=== PATIENT | male | born 1985 | race Caucasian/White ===

== ENCOUNTER 2025-03-04 17:01 | Emergency (ER) | payer OTHER ==
[2025-03-04] MEDS: ACETAMINOPHEN TAB 500 MG TAB PO STA (18:11)
[2025-03-04] MEDS: IBUPROFEN 800 MG TAB PO STA (18:12)
--- NOTE | 2025-03-04 18:13 | ED ---
General Adult HPI - General Source: patient, RN notes reviewed Mode of arrival: ambulatory Limitations: no limitations - History of Present Illness Onset/Timin -: days(s) Location: lower extremity Associated Symptoms: denies other symptoms <Denver Haskins - Last Filed: 03/04/25 18:51> <Sylvia Chavez - Last Filed: 03/04/25 20:49> - General Chief complaint: Skin/Abscess/Foreign Body Stated complaint: l leg irritation/swell Time Seen by Provider: 03/04/25 17:16 - History of Present Illness Initial comments: This is a 39-year-old male with no significant medical history presenting for bilateral lower extremity edema x 3 days. Patient denies known cause for swelling, noting some discoloration in his left leg and pain with weightbearing and ambulation. Patient denies recent trauma or open wound, history of leg swelling, recent long distance travel, recent surgery. Denies fever, chills, chest pain, dyspnea, abdominal pain, N/V/D. (Denver Haskins) - Related Data Previous Rx's Medication Instructions Recorded Cephalexin [Keflex] 500 mg PO Q6HR 1 Days #40 cap 03/04/25 Furosemide [Lasix] 40 mg PO DAILY 3 Days #3 tablet 03/04/25 Allergies Allergy/AdvReac Type Severity Reaction Status Date / Time No Known Allergies Allergy Verified 03/04/25 17:19 Review of Systems ROS Other: All systems not noted in ROS Statement are negative. <Denver Haskins - Last Filed: 03/04/25 18:51> ROS Other: All systems not noted in ROS Statement are negative. <Sylvia Chavez - Last Filed: 03/04/25 20:49> ROS Statement: Those systems with pertinent positive or pertinent negative responses have been documented in the HPI. Past Medical History Past Medical History: No Reported History Past Surgical History: No Surgical Hx Reported Smoking Status: Current every day smoker <Denver Haskins - Last Filed: 03/04/25 18:51> General Exam Limitations: no limitations General appearance: alert, in no apparent distress Head exam: Present: atraumatic, normocephalic, normal inspection Eye exam: Present: normal appearance, PERRL, EOMI. Absent: scleral icterus, conjunctival injection, periorbital swelling ENT exam: Present: normal exam, mucous membranes moist Neck exam: Present: normal inspection. Absent: tenderness, meningismus, lymphadenopathy Respiratory exam: Present: normal lung sounds bilaterally. Absent: respiratory distress, wheezes, rales, rhonchi, stridor Cardiovascular Exam: Present: regular rate, normal rhythm, normal heart sounds. Absent: systolic murmur, diastolic murmur, rubs, gallop, clicks GI/Abdominal exam: Present: soft, normal bowel sounds. Absent: distended, tenderness, guarding, rebound, rigid Extremities exam: Present: full ROM, normal capillary refill, pedal edema (Positive BLE pitting edema extending to knees with left ankle patchy stasis dermatitis), calf tenderness (Minor left calf pain with palpation), other (Distal neurovascular motor function intact bilaterally. Posterior tibialis pulses +2). Absent: joint swelling Back exam: Present: normal inspection Neurological exam: Present: alert, oriented X3, CN II-XII intact Psychiatric exam: Present: normal affect, normal mood Skin exam: Present: warm, dry, intact, normal color. Absent: rash <Denver Haskins - Last Filed: 03/04/25 18:51> Course Vital Signs 03/04/25 03/04/25 17:17 20:25 Temperature 99.8 F H 98.5 F Pulse Rate 105 H 92 Respiratory 20 18 Rate Blood Pressure 157/84 156/99 O2 Sat by Pulse 95 98 Oximetry Medical Decision Making - Lab Data Result diagrams: 03/04/25 18:15 <Denver Haskins - Last Filed: 03/04/25 18:51> - Lab Data Result diagrams: 03/04/25 18:15 03/04/25 18:15 - Radiology Data Radiology results: report reviewed, image reviewed <Sylvia Chavez - Last Filed: 03/04/25 20:49> - Medical Decision Making Was pt. sent in by a medical professional or institution (, PA, LATHE MACHINE OPERATOR, urgent care, hospital, or senior care...) When possible be specific @ -No Did you speak to anyone other than the patient for history (EMS, parent, family, police, friend...)? What history was obtained from this source @ -No Did you review nursing and triage notes (agree or disagree)? Why? @ -I reviewed and agree with nursing and triage notes Were old charts reviewed (outside hosp., previous admission, EMS record, old EKG, old radiological studies, urgent care reports/EKG's, senior care records)? Report findings @ -No old charts were reviewed Differential Diagnosis (chest pain, altered mental status, abdominal pain women, abdominal pain men, vaginal bleeding, weakness, fever, dyspnea, syncope, headache, dizziness, GI bleed, back pain, seizure, CVA, palpatations, mental health, musculoskeletal)? @ -Differential Musculoskeletal Muscular strain, contusion, ligament sprain, fracture, arthritis, septic arthritis, bursitis, cellulitis, muscle spasm, nerve compression, DVT, arterial occlusion, herpes zoster, electrolyte abnormality, tumor.... This is not meant to be in all inclusive list EKG interpreted by me (3pts min.). @ -Sinus rhythm without ST deviation or T wave inversion. Computer EKG notes possible recent lateral LA but no ST elevation, depression noted in any lateral leads. Isolated T wave inversion in aVL. Ventricular rate 94 bpm, JESSICA 145 ms, QRS 112 ms, QTc 400 ms. X-rays interpreted by me (1pt min.). @ -CXR shows no acute cardiopulmonary process CT interpreted by me (1pt min.). @ -None done U/S interpreted by me (1pt. min.). @ -LLE Doppler ultrasound results pending What testing was considered but not performed or refused? (CT, X-rays, U/S, labs)? Why? @ -None What meds were considered but not given or refused? Why? @ -None Did you discuss the management of the patient with other professionals (roberta lee i.eKatie Urbano, PA, LATHE MACHINE OPERATOR, lab, RT, psych nurse, social sciences research scientist, plasticator, teacher, tactical/mobile watch officer, case folder)? Give summary @ -No Was smoking cessation discussed for >3mins.? @ -No Was critical care preformed (if so, how long)? @ -No Were there social determinants of health that impacted care today? How? (Homelessness, low income, unemployed, alcoholism, drug addiction, transportation, low edu. Level, literacy, decrease access to med. care, shelter, rehab)? @ -No Was there de-escalation of care discussed even if they declined (Discuss DNR or withdrawal of care, Hospice)? DNR status @ -No What co-morbidities impacted this encounter? (DM, HTN, Smoking, COPD, CAD, Cancer, CVA, ARF, Chemo, Hep., AIDS, mental health diagnosis, sleep apnea, morbid obesity)? @ -None Was patient admitted / discharged? Hospital course, mention meds given and route, prescriptions, significant lab abnormalities, going to OR and other pertinent info. @ -Due to BLE edema, EKG and BNP including basic lab work obtained. ECG reports possible acute lateral LA although there is no significant ST deviation or T wave inversion noted. Lab work notable for WBC 14.92. Unremarkable CXR. LLE Doppler ultrasound results pending. Patient discussed care passed to Sylvia Rushing PA-C. (Denver Haskins) Case signed out to me by Denver Haskins PA-C, at shift completion pending US results, laboratory studies, and disposition. Chest x-ray and duplex ultrasound of the left lower extremity were both unremarkable. Lab work does demonstrate leukocytosis with a white blood cell count of 14.92. CRP mildly elevated at 2.7. Lactic acid negative. BNP only 364 not suggestive of CHF. He does appear to have bilateral lower extremity dependent edema with some erythema around the left ankle suggestive of developing infection, especially in conjunction with the leukocytosis and slightly elevated temperature on arrival. 2 g of ceftriaxone administered in the emergency department and Keflex was prescribed for further management of infection. Prescription for 3-day course of Lasix provided as well to help with the dependent edema. Advised elevation and compression to help with the swelling as well. Patient discharged home in stable condition and advised to follow-up with his PCP. Case discussed with ED attending Dr. Carlisle. Return precautions reviewed in depth, the patient is instructed to return to the emergency department with any new, worsening, or concerning symptoms. Patient verbalized understanding. (Sylvai Chavez) - Lab Data Lab Results 03/04/25 03/04/25 03/04/25 Range/Units 18:15 18:15 18:21 WBC 14.92 H (4.50-10.00) 10*3/uL RBC 4.78 (4.40-5.60) 10*6/uL Hgb 14.4 (13.0-17.0) g/dL Hct 42.2 (39.6-50.0) % MCV 88.3 (80.0-97.0) fL MCH 30.1 (27.0-32.0) pg MCHC 34.1 (32.0-37.0) g/dL Plt Count 378 (140-440) 10*3/uL MPV 9.9 (9.5-12.2) fL Immature Gran % (Auto) 0.5 % Neutrophils % 62.5 % Lymphocytes % 27.1 % Monocytes % 8.0 % Eosinophils % 1.3 % Basophils % 0.6 % Immature Gran # 0.08 H (0.00-0.04) 10*3/uL Neutrophils # 9.31 H (1.80-7.70) 10*3/uL Lymphocytes # 4.04 (0.90-5.00) 10*3/uL Monocytes # 1.20 H (0.20-1.00) 10*3/uL Eosinophils # 0.20 (0.04-0.35) 10*3/uL Basophils # 0.09 (0.00-0.10) 10*3/uL PT 10.2 (10.0-12.5) sec INR 0.9 (<1.2) APTT 22.1 (22.0-30.0) sec Sodium 140 (137-145) mmol/L Potassium 4.0 (3.5-5.1) mmol/L Chloride 108 H (98-107) mmol/L Carbon Dioxide 24 (22-30) mmol/L Anion Gap 8 mmol/L BUN 17 (9-20) mg/dL Creatinine 0.91 (0.66-1.25) mg/dL Est GFR (CKD-EPI)AfAm >90 (>60 ml/min/1.73 sqM) Est GFR (CKD-EPI)NonAf >90 (>60 ml/min/1.73 sqM) Glucose 107 H (74-99) mg/dL Plasma Lactic Acid Alfonso (0.7-2.0) mmol/L Calcium 10.2 (8.4-10.2) mg/dL Magnesium 2.0 (1.6-2.3) mg/dL Total Bilirubin 0.5 (0.2-1.3) mg/dL AST 46 (17-59) U/L ALT 37 (4-49) U/L Alkaline Phosphatase 68 (38-126) U/L Troponin I (0.000-0.034) ng/mL C-Reactive Protein (<1.0) mg/dL NT-Pro-B Natriuret Pep 364 pg/mL Total Protein 6.8 (6.3-8.2) g/dL Albumin 4.2 (3.5-5.0) g/dL 03/04/25 03/04/25 03/04/25 Range/Units 18:21 19:18 19:18 WBC (4.50-10.00) 10*3/uL RBC (4.40-5.60) 10*6/uL Hgb (13.0-17.0) g/dL Hct (39.6-50.0) % MCV (80.0-97.0) fL MCH (27.0-32.0) pg MCHC (32.0-37.0) g/dL Plt Count (140-440) 10*3/uL MPV (9.5-12.2) fL Immature Gran % (Auto) % Neutrophils % % Lymphocytes % % Monocytes % % Eosinophils % % Basophils % % Immature Gran # (0.00-0.04) 10*3/uL Neutrophils # (1.80-7.70) 10*3/uL Lymphocytes # (0.90-5.00) 10*3/uL Monocytes # (0.20-1.00) 10*3/uL Eosinophils # (0.04-0.35) 10*3/uL Basophils # (0.00-0.10) 10*3/uL PT (10.0-12.5) sec INR (<1.2) APTT (22.0-30.0) sec Sodium (137-145) mmol/L Potassium (3.5-5.1) mmol/L Chloride (98-107) mmol/L Carbon Dioxide (22-30) mmol/L Anion Gap mmol/L BUN (9-20) mg/dL Creatinine (0.66-1.25) mg/dL Est GFR (CKD-EPI)AfAm (>60 ml/min/1.73 sqM) Est GFR (CKD-EPI)NonAf (>60 ml/min/1.73 sqM) Glucose (74-99) mg/dL Plasma Lactic Acid Alfonso 1.3 (0.7-2.0) mmol/L Calcium (8.4-10.2) mg/dL Magnesium (1.6-2.3) mg/dL Total Bilirubin (0.2-1.3) mg/dL AST (17-59) U/L ALT (4-49) U/L Alkaline Phosphatase (38-126) U/L Troponin I 0.013 (0.000-0.034) ng/mL C-Reactive Protein 2.7 H (<1.0) mg/dL NT-Pro-B Natriuret Pep pg/mL Total Protein (6.3-8.2) g/dL Albumin (3.5-5.0) g/dL Disposition <Denver Haskins - Last Filed: 03/04/25 18:51> Is patient prescribed a controlled substance at d/c from ED?: No Time of Disposition: 20:23 <Sylvia Chavez - Last Filed: 03/04/25 20:49> Clinical Impression: Bilateral lower leg cellulitis, Dependent edema Disposition: HOME SELF-CARE Instructions (If sedation given, give patient instructions): Cellulitis (ED), Leg Edema (ED) Additional Instructions: Return to the emergency department with any new, worsening, or concerning symptoms. Take the antibiotic as prescribed for 10 days. Elevate your legs as much as possible and use compression stockings. You can also take the Lasix daily for the next 3 days. Try to take this in the morning as it will make you urinate much more than usual and may keep you up at night if you take it too late in the day. Follow up with your primary care provider in 1-2 days. Prescriptions: Cephalexin [Keflex] 500 mg PO Q6HR 1 Days #40 cap Furosemide [Lasix] 40 mg PO DAILY 3 Days #3 tablet Referrals: Nonstaff,Physician [Primary Care Provider] - 1-2 days
[2025-03-04 18:21] LABS: Basophils # (A) 0.09 10*3/uL (0.00-0.10); Basophils % (A) 0.6 %; Eosinophils # (A) 0.20 10*3/uL (0.04-0.35); Eosinophils % (A) 1.3 %; HCT 42.2 % (39.6-50.0); HGB 14.4 g/dL (13.0-17.0); Lymphocytes # (A) 4.04 10*3/uL (0.90-5.00); Lymphocytes % (A) 27.1 %; MCH 30.1 pg (27.0-32.0); MCHC 34.1 g/dL (32.0-37.0); MCV 88.3 fL (80.0-97.0); Monocytes # (A) 1.20 10*3/uL (0.20-1.00); Monocytes % (A) 8.0 %; Neutrophils # (A) 9.31 10*3/uL (1.80-7.70); Neutrophils % (A) 62.5 %; Platelet Count 378 10*3/uL (140-440); RBC 4.78 10*6/uL (4.40-5.60); RDW 13.6 % (11.5-14.5); WBC 14.92 10*3/uL (4.50-10.00)
--- NOTE | 2025-03-04 18:30 | XR ---
EXAMINATION TYPE: XR chest 2V DATE OF EXAM: 03/04/2025 6:24 PM COMPARISON: None TECHNIQUE: XR chest 2V Frontal and lateral views of the chest. CLINICAL INDICATION:Male, 39 years old with history of BLE pitting edema; FINDINGS: Lungs/Pleura: There is no evidence of pleural effusion, focal consolidation, or pneumothorax. Pulmonary vascularity: Unremarkable. Heart/mediastinum: Cardiomediastinal silhouette is unremarkable. Musculoskeletal: No acute osseous pathology. IMPRESSION: No acute cardiopulmonary disease/process. [facility], , 03/04/2025 6:28 PM
--- NOTE | 2025-03-04 19:18 | US ---
EXAMINATION TYPE: US venous doppler duplex LE LT DATE OF EXAM: 03/04/2025 7:07 PM COMPARISON: NONE CLINICAL INDICATION: Male, 39 years old with history of Sudden onset pitting, stasis dermatitis; left leg swelling. no hx dvt, not on thinners TECHNIQUE: The lower extremity deep venous system is examined utilizing real time linear array sonog priscila with graded compression, doppler sonography and color-flow sonography. Grayscale, color doppler , spectral doppler imaging performed of the deep veins of the lower extremities FINDINGS: SIDE PERFORMED: Left VESSELS IMAGED: Common Femoral Vein Deep Femoral Vein Greater Saphenous Vein * Femoral Vein Popliteal Vein Small Saphenous Vein * Proximal Calf Veins (* superficial vessels) Left Leg: appears negative for dvt; There is normal flow, compressibility, vascular waveforms. IMPRESSION: No visualized deep vein thrombosis of the left lower extremity. [facility], , 03/04/2025 7:16 PM
[2025-03-04 19:51] LABS: ALT 37 U/L (4-49); AST 46 U/L (17-59); African American GFR (CKD) >90 (>60 ml/min/1.73 sqM); Albumin 4.2 g/dL (3.5-5.0); Alkaline Phosphatase 68 U/L (38-126); Anion Gap 8 mmol/L; Blood Urea Nitrogen 17 mg/dL (9-20); Calcium 10.2 mg/dL (8.4-10.2); Carbon Dioxide 24 mmol/L (22-30); Chloride 108 mmol/L (98-107); Glucose 107 mg/dL (74-99); Magnesium 2.0 mg/dL (1.6-2.3); Non-African American GFR(CKD) >90 (>60 ml/min/1.73 sqM); Potassium 4.0 mmol/L (3.5-5.1); Sodium 140 mmol/L (137-145); Total Protein 6.8 g/dL (6.3-8.2)
[2025-03-04 19:58] LABS: INR 0.9 (<1.2); Partial Thromboplastin Time 22.1 sec (22.0-30.0); Prothrombin Time 10.2 sec (10.0-12.5)
[2025-03-04 19:59] LABS: NT-Pro-B-Type Natriuretic Pept 364 pg/mL
[2025-03-04] MEDS: cefTRIAXone 1,000 MG VIAL (IM USE) IM STA (20:03)
[2025-03-04] MEDS: cefTRIAXone IN SWFI 1,000 MG/10 ML SYRINGE IVP STA (20:08)
[2025-03-04 20:27] VITALS: BP 156/99; PULSE 92; RESP 18; TEMP 98.5
== END 2025-03-04 20:28 | disposition home or self-care (01) ==
LOC: EC 17:01
DX: L03.115 Cellulitis of right lower limb (principal); L03.116 Cellulitis of left lower limb; R60.0 Localized edema; F17.200 Nicotine dependence, unspecified, uncomplicated
CPT/HCPCS: 36415; 93005; 83880; 80053; 83605; 83735; 84484; 85025; 85610; 85730; 86140; 71046; 93971; 99284; 96374; J0696